=== PATIENT | male | born 1985 | race Two or more races ===

== ENCOUNTER 2024-08-15 10:55 | Emergency (ER) | payer BC, SELFPAY ==
[2024-08-15 11:07] VITALS: BP 135/83; PULSE 81; RESP 19; TEMP 36.9; O2SAT 98
[2024-08-15 11:19] VITALS: BMI 32.1
--- NOTE | 2024-08-15 11:27 | XR_ITS ---
Examination: CT abdomen with intravenous contrast CT pelvis with intravenous contrast 2-D coronal reconstructions 2-D sagittal reconstructions Date and time of exam:August 15, 2024 1646 hours Comparison December 14, 2020 INDICATIONS: Onset lower abdominal pain and nausea today. Acute sigmoid diverticulitis November 2020 CTDI: vol (mGy) 11 DLP: (mGycm) 780 Technique: Multiple axial sections of the abdomen and pelvis have been obtained. 64 slice high-resolution scanner used. 3 mm axial sections have been obtained, post intravenous injection 60 cc [id number] 2-D sagittal, coronal reconstructions obtained. Low dose protocols were performed. One or more of the following dose reduction techniques were used; automated exposure control, adjustment of the mA and/or KV according to patient size, use of iterative reconstruction technique. Findings: Fatty liver No gallstones Spleen not enlarged No pancreatic or adrenal mass No renal or ureteral calculi, no hydronephrosis Aorta normal size 10 mm fat-containing umbilical hernia Normal appendix Colonic diverticulosis Acute sigmoid diverticulitis, no pelvic abscess Urinary bladder intact IMPRESSION: Acute sigmoid diverticulitis, no pelvic abscess
--- NOTE | 2024-08-15 11:28 | PD.EDRME ---
Rapid Medical Screening Exam RME Arrival date/time: 08/15/24 10:55 This is a 38-year-old male presents to the emergency department with complaint of lower abdominal pain. I have greeted and performed a focused initial assessment of this patient. Initial appropriate labs ordered at this time. A comprehensive ED assessment and evaluation of the patient and analysis of all test and completion of medical decision making process will be conducted by additional ED provider. Chief Complaint: Abdominal Pain Time Seen by Provider: 08/15/24 11:16 Vital signs: Vital Signs Temperature 98.4 F 08/15/24 11:07 Pulse Rate 81 08/15/24 11:07 Respiratory Rate 19 08/15/24 11:07 Blood Pressure 135/83 H 08/15/24 11:07 Pulse Oximetry (%) 98 08/15/24 11:07 Oxygen Delivery Method Room Air 08/15/24 11:07
[2024-08-15 12:08] LABS: Collection Type, Urine Clean Catch; Squamous Epithelial Cell,Urine 0 /hpf (0-5)
[2024-08-15 12:11] LABS: Bilirubin,Urine Negative (Negative); Blood,Urine Negative (Negative); Clarity,Urine Clear (Clear/Hazy); Color,Urine Lt-Yellow (Lt Yel-Yel); Glucose, Urine Negative (Negative); Ketones,Urine Negative (Negative); Leukocyte Esterase,Urine Negative (Negative); Nitrite,Urine Negative (Negative); PH,Urine 7.5 (5.0-7.0); Protein,Urine Negative (Neg - Trace); RBC,Urine 1 /hpf (0-3); Specific Gravity,Urine 1.019 (1.001-1.035); Urobilinogen,Urine Negative mg/dL (0.0-1.0); WBC,Urine < 1 /hpf (0-5)
[2024-08-15 12:48] LABS: Basophils # (Auto) 0.1 Thou/mm3 (0.0-0.2); Basophils % (Auto) 0 % (0-2.5); Eosinophils % (Auto) 0 % (0-10); Hematocrit 43.9 % (41.0-53.0); Hemoglobin 15.4 g/dL (13.5-16.0); Immature Granulocytes % (Auto) 0 % (0-0); Immature Granulocytes Auto 0.08 Thou/mm3 (0.00-0.00); Lymphocytes # (Auto) 1.9 Thou/mm3 (1.0-4.8); Lymphocytes % (Auto) 9 % (10-50); Mean Corpuscular HGB Conc 35.1 g/dl (31.0-37.0); Mean Corpuscular Hemoglobin 30.6 pg (25.0-35.0); Mean Corpuscular Volume 87 fL (80-100); Monocytes # (Auto) 0.8 Thou/mm3 (0.0-0.8); Monocytes % (Auto) 4 % (0-12); Neutrophils # (Auto) 17.9 Thou/mm3 (1.8-7.7); Neutrophils % (Auto) 86 % (37-80); Nucleated Red Blood Cell % 0 /100 WBC (0); Platelet Count 283 Thou/mm3 (140-440); RDW Standard Deviation 39.6 fL (35.1-43.9); Red Blood Count 5.04 Miln/mm3 (4.50-5.90); White Blood Count 20.8 Thou/mm3 (3.8-10.6)
[2024-08-15 13:40] LABS: Alanine Aminotransferase 56 U/L (10-49); Albumin/Globulin Ratio 1.5 (1.2-2.2); Alkaline Phosphatase 115 U/L (46-116); Anion Gap 9 (7-16); Aspartate Amino Transferase 33 U/L (0-34); BUN/Creatinine Ratio 9 Ratio (12-20); Bilirubin,Total 0.6 mg/dL (0.3-1.2); Blood Urea Nitrogen 9 mg/dL (9-23); Calcium 10.6 mg/dL (8.3-10.6); Calcium (Corrected) 10.6 mg/dL (8.5-10.1); Carbon Dioxide 27.5 mMol/L (20.0-31.0); Chloride 101 mMol/L (98-107); Estimated Creatinine Clearance 125.5 mL/min (>60); Globulin 3.4 gm/dL (2.3-3.5); Lipase 42 U/L (12-53); Sodium 137 mMol/L (136-145); Total Protein 8.4 gm/dL (5.7-8.2); eGFR > 60 See Note
[2024-08-15 13:56] LABS: Glucose 101 mg/dL (74-106); Osmolality,Calculated 272 (275-295)
[2024-08-15 15:45] VITALS: BP 121/77; PULSE 95; RESP 19; TEMP 38.9; O2SAT 96
--- NOTE | 2024-08-15 17:10 | PC.NURSE ---
sepsis called at this time
[2024-08-15] MEDS: metroNIDAZOLE/NS 500 MG IVPB 500 MG/100 ML BAG 200 MG IV (17:50)
[2024-08-15] MEDS: KETOROLAC INJ 30 MG/ML VIAL IVP (17:51)
[2024-08-15] MEDS: SODIUM CHLORIDE 0.9% 1000 ML 2,259 ML 2259 ML IV (17:55)
--- NOTE | 2024-08-15 19:34 | PD.EDABDPN ---
ED Abdominal Pain RME/HPI General Chief Complaint: Abdominal Pain Stated complaint: ABDOMINAL PAIN,N/V/D SINCE 0800 Time seen by provider: 08/15/24 11:16 Arrival date/time: 08/15/24 10:55 RME / HPI RME / HPI narrative: 38-year-old male patient with no significant past medical history, came in for evaluation regarding lower abdominal pain. Onset of symptoms since early this morning as lower abdominal pain, associated with vomiting. Patient denies any fever. Denies any diarrhea or constipation. Pain is described as dull ache, severity moderate. No medications taken prior to arrival. Related Data Previous Rx's ?Medication ?Instructions ?Recorded ibuprofen 600 mg tablet 600 mg PO Q8H PRN fever #20 tabs 10/30/17 psyllium husk 3 gram/5.4 gram oral 1 tbsp PO QDAY #426 grams 12/15/20 powder ibuprofen 600 mg tablet 600 mg PO Q6H PRN pain #30 tabs 10/20/22 ciprofloxacin HCl 500 mg tablet 500 mg PO BID #20 tabs 08/15/24 (Cipro) ibuprofen 100 mg/5 mL oral 800 mg (40 mL) PO Q8H PRN pain 08/15/24 suspension #473 mL metronidazole 500 mg tablet 500 mg PO BID 10 days #20 tabs 08/15/24 Allergies Allergy/AdvReac Type Severity Reaction Status Date / Time Penicillins Allergy Rash Verified 08/15/24 10:59 Review of Systems Review of Systems Narrative Review of Systems: Review of system reviewed and within normal limits except mentioned in HPI ED Exam Narrative Physical exam: VITAL SIGNS: Reviewed. GENERAL APPEARANCE: Alert and interactive, follows commands, no acute distress, HEAD AND FACE: Non-traumatic. ENT: PERRL, pink conjunctivitis, eyelid no trauma, Mucous membrane moist. NECK: Supple, nontender, no nuchal rigidity. CHEST: No tenderness, no crepitus, no paradoxical movement, no retractions. LUNGS: Clear, well ventilated, symmetric, no rales, no wheezing, no ronchi, no stridor, good breath sounds bilaterally. HEART: Regular rate, regular rhythm, no murmur, no gallops. ABDOMEN: Soft, positive bowel sounds, nondistended, no guarding, lower abdominal tenderness, no rebound, no masses, RECTAL: Deferred. GENITAL: Deferred. NEUROLOGICAL: Gross motor function intact sensory function intact, Appropriate for age. MUSCULOSKELETAL: low back nontender, full range of motion. EXTREMITIES: Nontender, full range of motion. SKIN: Color pink, dry, no rash, no lacerations, no abrasions, no contusions. LYMPHATICS: Deferred. Course Quality Measures none Orders Category Date Time Status CT Screening NOW Care 08/15/24 11:[address] abdomen pelvis w con Stat Exams 08/15/24 11:27 Completed Blood Culture (Lab) Stat Lab 08/15/24 17:20 Received CBC Stat Lab 08/15/24 12:34 Completed Comprehensive Metabolic Panel Stat Lab 08/15/24 12:34 Completed Lactic Acid [Lactate (Lactic Acid)] Stat Lab 08/15/24 17:26 Completed Lipase Stat Lab 08/15/24 12:34 Completed Procalcitonin Stat Lab 08/15/24 17:26 Completed Urinalysis Stat Lab 08/15/24 12:02 Completed Acetaminophen Tab [Tylenol ES Tab] Med 08/15/24 17:11 Discontinued 1,000 mg PO X1 ONE CIPROFLOXACIN/D5w 400 MG IVPB [Cipro Ivpb] Med 08/15/24 17:45 Discontinued 400 mg in 200 ml IV X1 Ketorolac Inj [Toradol Inj] Med 08/15/24 17:46 Discontinued 30 mg IVP X1 ONE Sodium Chloride 0.9% 1000 ml [Ns] 2,259 ml Med 08/15/24 17:09 Discontinued IV 2,259 mls/hr ceFAZolin/D5W 1 GM IVPB [Ancef Ivpb] Med 08/15/24 17:19 Discontinued 1 gm in 50 ml IV X1 metroNIDAZOLE/NS 500 MG IVPB [Flagyl 500 mg IV] Med 08/15/24 17:20 Discontinued 500 mg in 100 ml IV X1 Vital Signs Vital signs: Vital Signs Temperature 98.4 F 08/15/24 11:07 Pulse Rate 81 08/15/24 11:07 Respiratory Rate 19 08/15/24 11:07 Blood Pressure 135/83 H 08/15/24 11:07 Pulse Oximetry (%) 98 08/15/24 11:07 Oxygen Delivery Method Room Air 08/15/24 11:07 Abdominal Pain MDM MDM Narrative MDM Narrative:: 38-year-old male patient with no significant past medical history, came in for evaluation regarding lower abdominal pain. Onset of symptoms since early this morning as lower abdominal pain, associated with vomiting. Patient denies any fever. Denies any diarrhea or constipation. Pain is described as dull ache, severity moderate. No medications taken prior to arrival. Patient is a significant leukocytosis of 20,000. CT scan of the abdomen showed acute sigmoid diverticulitis, no abscess noted. Patient received IV fluids for hydration, IV Cipro and IV Flagyl. Patient is tolerating p.o. fluids in the ED. Patient data External records reviewed:: None Clinical information provided by:: patient Social determinants that could affect healthcare access:: none Patient has the following chronic illnesses:: None How is presenting disease/condition affected by chronic disease/condition?: exacerbated by Evaluation data The following diagnostics were reviewed and interpreted by me:: lab results and radiology exam(s) Lab and/or radiology exams considered but not ordered:: None Interpretation Summary: Laboratory Significant for leukocytosis 20,000. CT scan of the abdomen and pelvis showed acute sigmoid diverticulitis no perforation or abscess noted. As read by radiologist. Medications / Prescriptions Medications or Prescriptions considered but not ordered:: None Medication administrations:: Medication Administration History Discontinued Medications Acetaminophen (Acetaminophen 500 Mg Tablet) 1,000 mg PO X1 ONE Stop: 08/15/24 17:12 Last Admin: 08/15/24 17:31 Dose: Not Given Documented By: [email or web address] Non-Admin Reason: Unable to Swallow Sodium Chloride (Ns) 2,259 mls @ 2,259 mls/hr 30 ml/kg infuse over 60 min (2259 ml) IV .Q1H ONE Stop: 08/15/24 18:08 Last Admin: 08/15/24 17:55 Dose: 2,259 mls/hr Documented By: ANNABELLE Cefazolin Sodium/Dextrose (Ancef Ivpb) 1 gm in 50 mls @ 100 mls/hr IV X1 ONE Stop: 08/15/24 17:48 Last Admin: 08/15/24 17:52 Dose: Not Given Documented By: ANNABELLE Non-Admin Reason: Cancelled by Provider Metronidazole (Flagyl 500 Mg Iv) 500 mg in 100 mls @ 200 mls/hr IV X1 ONE Stop: 08/15/24 17:49 Last Admin: 08/15/24 17:50 Dose: 200 mls/hr Documented By: ANNABELLE Ciprofloxacin/Dextrose (Cipro Ivpb) 400 mg in 200 mls @ 200 mls/hr IV X1 ONE Stop: 08/15/24 18:44 Ketorolac Tromethamine (Ketorolac Inj 30 Mg/Ml Vial) 30 mg IVP X1 ONE Stop: 08/15/24 17:47 Last Admin: 08/15/24 17:51 Dose: 30 mg Documented By: ANNABELLE Watson. IV. Patient was also given IV fluids for hydration and Tylenol Consultations Consultation(s) initiated? (list below): No Diagnosis Differential diagnosis abdominal pain: abdominal pain, acute appendicitis, diverticulitis and pancreatitis Most likely diagnosis given after review of the tests above:: Acute sigmoid diverticulitis Admission Indicated Admission indicated?: not indicated Explain why admission is indicated or not indicated:: Stable Admission Request Was there a request for admission?: No Disposition Plan Disposition Plan: Discharge Discharge Attestation Discharge Attestation: The patient was given an opportunity to ask questions and understood the discharge instructions. Discharge instructions specifically effects, indications for sooner follow up or return to the emergency department, and the expected course of current diagnosis. Patient condition: Stable Discharge Plan Plan Patient Disposition: HOME (Self Care) Disposition Comment: Stable Prescriptions/Referrals Prescriptions/Med Rec: New metronidazole 500 mg tablet 500 mg PO BID 10 Days Qty: 20 0RF ciprofloxacin HCl [Cipro] 500 mg tablet 500 mg PO BID Qty: 20 0RF ibuprofen 100 mg/5 mL suspension 800 mg PO Q8H PRN (Reason: pain) Qty: 473 0RF No Action ibuprofen 600 mg tablet 600 mg PO Q8H PRN (Reason: fever) Qty: 20 0RF psyllium husk 3 gram/5.4 gram powder 1 tbsp PO QDAY Qty: 426 0RF Rx Instructions: mix into at least 8 oz of water or juice before administering ibuprofen 600 mg tablet 600 mg PO Q6H PRN (Reason: pain) Qty: 30 0RF Referrals: No Primary/Family,Physician [Primary Care Provider] - In 1 week Problem List Clinical Impression: Diverticulitis Patient/Caregiver Discharge Instructions Discharge Activity: activity as tolerated Education Materials: ED Diverticulitis Additional Instructions: Thank you for the opportunity for serving you today. You are stable for discharged . You are advised to: Follow-up with your PCP in 1 to 2 days Return to ED for worsening of symptoms, worsening abdominal pain, vomiting, fever Increase oral fluids Take medication as prescribed Liquid diet for 2 to 3 days advance as tolerated Print Language: Bengali Stand Alone Forms: Charmaine Award Info., Patient Portal Info Letter PA/[employer]PER[employer] Supervising Physician JEREMIAH/FERNANDA Supervising Physician: MD Cb
[2024-08-15] MEDS: CIPROFLOXACIN/D5w 400 MG IVPB 400 MG/200 ML BAG 200 MG IV (19:52)
[2024-08-15 20:48] VITALS: BP 122/78; PULSE 88; RESP 16; TEMP 36.6; O2SAT 99
== END 2024-08-15 21:45 | disposition home or self-care (01) ==
PROVIDERS: Nurse Practitioner Primary Care; Emergency Provider Emergency Medicine
DX: K57.32 Diverticulitis of large intestine without perforation or abscess without bleeding (principal)
CPT/HCPCS: 36415; 74177; 80053; 81001; 83605; 83690; 84145; 85025; 87040; 96374; 99285; A4649; J0744; J1885; J3490; J7030; Q9967; J1836